=== PATIENT | male | born 1955 | race African-American/Black ===

== ENCOUNTER 2017-03-27 12:38 | Emergency (ER) | payer OTHER ==
[~2017-03-27 12:38] MED LIST: CREON24 PO; DILA4TAB2 PO; NOVO7030P2 SQ; PROT40TA PO
[2017-03-27 12:45] VITALS: BP 187/97; PULSE 84; RESP 20; TEMP 98.4; O2SAT 100
[2017-03-27] MEDS ORDERED: SODIUM CHLORIDE 0.9% FLUSH 10 ML FLUSH IV FLUSH PRN (13:00)
[2017-03-27] MEDS ORDERED: ONDANSETRON HCL 4 MG/2 ML VIAL IVP ONE (13:00)
[2017-03-27] MEDS ORDERED: MORPHINE SULFATE 8 MG/ML INJ IV PUSH ONE (13:00)
--- NOTE | 2017-03-27 13:01 | PD ---
HPI Chief Complaint: abdominal pain Time Seen by Provider: 12:45 Travel History International Travel<30 days: No Contact w/Intl Traveler<30days: No History of Present Illness HPI 62yo M with PMH of pancreatitis, DM presents to the ED with c/o epigastric abdominal pain for 1 day. Pain is burning, nonradiating and constant. Associated with nausea and vomiting. Pt also states he is sob because he is in a lot of pain. Denies any fever, chest pain, urinary complaints, diarrhea, focal weakness or numbness. Pt has had similar pain before and was admitted for intractable abdominal pain in 04/2016. PFSH Past Medical History Arthritis: No Asthma: Yes (as child) Autoimmune Disease: No Blood Disorders: No Anxiety: No Depression: Yes Heart Rhythm Problems: No Cancer: Yes (PANCREATIC PER PT- [place] UNKNOWN) Cardiovascular Problems: Yes (HTN) High Cholesterol: No Chemotherapy: No Chest Pain: No Congestive Heart Failure: No COPD: No Cerebrovascular Accident: No Diabetes: Yes Diminished Hearing: No Endocrine: Yes Gastrointestinal Disorders: Yes (HEPATITIS C) GERD: Yes Glaucoma: No Genitourinary: No Headaches: Yes Hepatitis: Yes (HEP C) Hiatal Hernia: Yes Hypertension: Yes Immune Disorder: No Implanted Vascular Access Dvce: No Kidney Stones: No Musculoskeletal: Yes Neurologic: Yes Psychiatric: No Reproductive: No Respiratory: Yes (ASTHMA) Immunizations Current: No Migraines: No Myocardial Infarction: No Pancreatitis: Yes Radiation Therapy: No Renal Failure: No Seizures: No Sickle Cell Disease: No Sleep Apnea: No Thyroid Disease: No Ulcer: No PNEUMOCCOCAL Vaccine (Year): 2 Past Surgical History Abdominal Surgery: Yes (WHIPPLE) AICD: No Appendectomy: No Arteriovenous Shunt: No Cardiac Surgery: No Cholecystectomy: Yes Ear Surgery: No Endocrine Surgery: No Eye Surgery: No Genitourinary Surgery: No Gynecologic Surgery: No Insulin Pump: No Joint Replacement: No Neurologic Surgery: Yes (HEADACHES) Oral Surgery: Yes ([place]LS) Pacemaker: No Thoracic Surgery: No Other Surgery: Yes Social History Alcohol Use: Yes (OCC) Tobacco Use: No (QUIT 20 YRS 1PPD) Substance Use: Yes (COCAINE USE 2 weeks ago per patient report) Allergies-Medications (Allergen,Severity, Reaction): Coded Allergies: lisinopril (Unverified Adverse Reaction, Severe, Cough, 03/27/17) *MDRO Multi-Drug Resistant Organism (Verified Adverse Reaction, Unknown, 04/12/15) MRSA leg wound 02/2015. Reported Meds & Prescriptions Reported Meds & Active Scripts Active Dilaudid (Hydromorphone HCl) 4 Mg Tab 4 Mg PO Q6H PRN Creon (Amylase/Lipase/Protease) 24,000-76,000-120,000 Units Cap 1 Cap PO TID Reported [Htn Med] Gabapentin 300 Mg Cap 300 Mg PO BID Novolin 70-30 Inj (Insulin Human Isoph/Insulin Regular) 1,000 Unit/10 Ml Vial 1 Units SQ BIDAC Protonix (Pantoprazole Sodium) 40 Mg Tab 40 Mg PO DAILY Review of Systems Except as stated in HPI: all other systems reviewed are Neg Physical Exam Narrative GENERAL: 62yo M in moderate distress. SKIN: Focused skin assessment warm/dry. HEAD: Atraumatic. Normocephalic. EYES: Pupils equal and round. No scleral icterus. No injection or drainage. CARDIOVASCULAR: Regular rate and rhythm. No murmur appreciated. RESPIRATORY: No accessory muscle use. Clear to auscultation. Breath sounds equal bilaterally. GASTROINTESTINAL: Abdomen soft, +TTP epigastric region. No rebound tenderness or guarding. MUSCULOSKELETAL: No obvious deformities. No clubbing. No cyanosis. No edema. NEUROLOGICAL: Awake and alert. No obvious cranial nerve deficits. Motor grossly within normal limits. Normal speech. PSYCHIATRIC: Appropriate mood and affect; insight and judgment normal. Data Data Last Documented VS Vital Signs Date Time Temp Pulse Resp B/P (MAP) Pulse Ox O2 Delivery O2 Flow Rate FiO2 03/27/17 15:09 77 16 130/56 (80) 99 Room Air 03/27/17 12:45 98.4 Orders Orders Complete Blood Count With Diff (03/27/17 12:52) Comprehensive Metabolic Panel (03/27/17 12:52) Lipase (03/27/17 12:52) Prothrombin Time / Inr (Pt) (03/27/17 12:52) Act Partial Throm Time (Ptt) (03/27/17 12:52) Urinalysis - C+S If Indicated (03/27/17 12:52) Ct Abd/Pel W Iv Contrast(Rout) (03/27/17 12:52) Iv Access Insert/Monitor (03/27/17 12:52) Ecg Monitoring (03/27/17 12:52) Oximetry (03/27/17 12:52) Ondansetron Inj (Zofran Inj) (03/27/17 13:00) Sodium Chloride 0.9% Flush (Ns Flush) (03/27/17 13:00) Chest, Single Ap (03/27/17 12:52) Troponin I (03/27/17 12:52) Morphine Inj (Morphine Inj) (03/27/17 13:00) Electrocardiogram (03/27/17 12:40) Iohexol 350 Inj (Omnipaque 350 Inj) (03/27/17 16:40) Labs Laboratory Tests Test 03/27/17 12:57 03/27/17 15:56 03/27/17 16:59 White Blood Count 9.4 TH/MM3 Red Blood Count 3.90 MIL/MM3 Hemoglobin 11.0 GM/DL Hematocrit 33.8 % Mean Corpuscular Volume 86.6 FL Mean Corpuscular Hemoglobin 28.3 PG Mean Corpuscular Hemoglobin Concent 32.7 % Red Cell Distribution Width 12.7 % Platelet Count 304 TH/MM3 Mean Platelet Volume 8.1 FL Neutrophils (%) (Auto) 76.7 % Lymphocytes (%) (Auto) 14.6 % Monocytes (%) (Auto) 3.6 % Eosinophils (%) (Auto) 1.3 % Basophils (%) (Auto) 3.8 % Neutrophils # (Auto) 7.2 TH/MM3 Lymphocytes # (Auto) 1.4 TH/MM3 Monocytes # (Auto) 0.3 TH/MM3 Eosinophils # (Auto) 0.1 TH/MM3 Basophils # (Auto) 0.4 TH/MM3 CBC Comment DIFF FINAL Differential Comment Prothrombin Time 10.8 SEC Prothromb Time International Ratio 1.0 RATIO Activated Partial Thromboplast Time 22.7 SEC Blood Urea Nitrogen 13 MG/DL Creatinine 0.93 MG/DL Random Glucose 116 MG/DL Total Protein 7.1 GM/DL Albumin 2.8 GM/DL Calcium Level 7.8 MG/DL Alkaline Phosphatase 67 U/L Aspartate Amino Transf (AST/SGOT) 15 U/L Alanine Aminotransferase (ALT/SGPT) 21 U/L Total Bilirubin 0.4 MG/DL Sodium Level 138 MEQ/L Potassium Level 3.6 MEQ/L Chloride Level 102 MEQ/L Carbon Dioxide Level 27.3 MEQ/L Anion Gap 9 MEQ/L Estimat Glomerular Filtration Rate 100 ML/MIN Troponin I LESS THAN 0.02 NG/ML Lipase 88 U/L Urine Color YELLOW Urine Turbidity CLEAR Urine pH 7.5 Urine Specific [place] 1.021 Urine Protein 30 mg/dL Urine Glucose (UA) 500 mg/dL Urine Ketones NEG mg/dL Urine Occult Blood NEG Urine Nitrite NEG Urine Bilirubin NEG Urine Leukocyte Esterase NEG Urine WBC 0-2 /hpf Urine Squamous Epithelial Cells 0-5 /hpf Microscopic Urinalysis Comment CULT NOT INDICATED MDM Medical Decision Making Medical Screen Exam Complete: Yes Emergency Medical Condition: Yes Interpretation(s) EKG: NSR 91bpm. Normal axis. Q waves in inferior leads as well as V4-6. Also 1mm ST segment elevation in V2. Unchanged from prior. Differential Diagnosis Pancreatitis vs. gastritis vs. gastric ulcer vs. colitis vs. UTI Narrative Course 62yo M with epigastric abdominal pain for 1 day. Labs reviewed, no leukocytosis. H/H low at 11/33.8. CMP unremarkable. Troponin negative. Lipase normal. UA negative for leukocyte. CT a/p showed minimal induration laterally abdominal wall right side, nonspecific. Pt has no pain there. No other abnormalities identified. CXR showed mild interstitial opacities in lower zones bilaterally. Although nonspecific this could represent interstitial pulmonary edema. Pt was given morphine, zofran and reevaluated at bedside. Denies any sob, nausea or abdominal pain. Pt is saturating at 99% on RA and I believe that he felt sob earlier because he was in pain. He is currently resting comfortably in bed. 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 No chest pain. Tolerating PO. Return precautions given. Diagnosis Primary Impression: Abdominal pain Qualified Codes: R10.13 - Epigastric pain Patient Instructions: General Instructions Departure Forms: Tests/Procedures Additional Instructions: Please follow up with your primary care physician in 1-2 days. Return to the ED if symptoms worsen. Med/Other Pt SpecificInfo: Prescription(s) given Scripts Hydrocodone-Acetaminophen (Lortab) 5-325 Mg Tab 1 TAB PO Q6H Y for PAIN, #7 TAB 0 Refills Prov: Salima Nathan 03/27/17 Disposition: 01 DISCHARGE HOME Condition: Stable Karon Nathancm RESENDIZ Mar 27, 2017 13:01
[2017-03-27 13:21] LABS: AUTOMATED NEUTROPHIL # 7.2 TH/MM3 (1.8-7.7); BASOPHIL # 0.4 TH/MM3 (0-0.2); BASOPHIL % 3.8 % (0.0-2.0); EOSINOPHIL # 0.1 TH/MM3 (0-0.4); EOSINOPHIL % 1.3 % (0.0-4.0); HEMATOCRIT 33.8 % (39.0-51.0); HEMO FLAGS DIFF FINAL; LYMPH % 14.6 % (9.0-44.0); LYMPHOCYTE # 1.4 TH/MM3 (1.0-4.8); MEAN CELL VOLUME 86.6 FL (80.0-100.0); MEAN CORPUSCULAR HEMOGLOBIN 28.3 PG (27.0-34.0); MEAN CORPUSCULAR HGB CONC 32.7 % (32.0-36.0); MONO % 3.6 % (0.0-8.0); NEUT % 76.7 % (16.0-70.0); PLATELET COUNT 304 TH/MM3 (150-450); RED CELL DISTRIBUTION WIDTH 12.7 % (11.6-17.2); WHITE BLOOD COUNT 9.4 TH/MM3 (4.0-11.0)
[2017-03-27 13:24] VITALS: O2SAT 100
[2017-03-27] MEDS ORDERED: GABA300C5 PO (13:26)
[2017-03-27] MEDS ORDERED: HTN MED (13:26)
[2017-03-27 13:34] LABS: APTT (PATIENT) 22.7 SEC (24.3-30.1); PROTHROMBIN TIME - PATIENT 10.8 SEC (9.8-11.6)
--- NOTE | 2017-03-27 14:05 | RADRPT ---
EXAM DATE/TIME: 03/27/2017 12:58 [facility] COMPARISON: CHEST SINGLE AP, April 27, 2016, 8:33. INDICATIONS : Short of breath MEDICAL HISTORY : Hepatitis C. Pancreatitis. Hernia, hiatal. Hypertension, Diabetes. SURGICAL HISTORY : Cholecystectomy. Whipple ENCOUNTER: Initial ACUITY: 1 day PAIN SCORE: 6/10 LOCATION: Bilateral chest FINDINGS: Portable AP view of the chest demonstrates a normal-sized cardiac silhouette. There are mild intersti tial opacities in the lower lung zones bilaterally. No pleural effusion or pneumothorax is identified . Bones and soft tissues demonstrate no acute finding. CONCLUSION: Mild interstitial opacities in the lower lung zones bilaterally. Although nonspecific this could repr esent interstitial pulmonary edema in the appropriate clinical setting. Major Steele MD on March 27, 2017 at 13:13 Board Certified Radiologist. This report was verified electronically.
[2017-03-27 15:09] VITALS: BP 130/56; PULSE 77; RESP 16; O2SAT 99
[2017-03-27 16:15] LABS: CHLORIDE 102 MEQ/L (98-107); POTASSIUM 3.6 MEQ/L (3.5-5.1); SODIUM (NA) 138 MEQ/L (136-145)
[2017-03-27 16:19] LABS: ANION GAP 9 MEQ/L (5-15); BICARBONATE 27.3 MEQ/L (21.0-32.0); BLOOD UREA NITROGEN 13 MG/DL (7-18)
[2017-03-27 16:22] LABS: ALT (GPT) 21 U/L (12-78); AST (GOT) 15 U/L (15-37); GLOMERULAR FILTRATION RATE 100 ML/MIN (>89)
[2017-03-27 16:23] LABS: TOTAL BILIRUBIN ADULT 0.4 MG/DL (0.2-1.0)
[2017-03-27 16:25] LABS: ALKALINE PHOSPHATASE 67 U/L (45-117)
[2017-03-27] MEDS ORDERED: IOHEXOL 350 MG/ML 10 ML VIAL (for RAD DIAG) IVCONTRAST ONE (16:40)
--- NOTE | 2017-03-27 17:04 | RADRPT ---
EXAM DATE/TIME: 03/27/2017 16:36 [facility] COMPARISON: CT ABDOMEN & PELVIS W CONTRAST, April 27, 2016, 8:09. INDICATIONS : Epigastric pain, nausea and vomiting. IV CONTRAST: 80 cc Omnipaque 350 (iohexol) IV ORAL CONTRAST: No oral contrast ingested. RADIATION DOSE: 11.69 CTDIvol (mGy) MEDICAL HISTORY : Pancreatitis. Hepatitis C. Gastroesophageal reflux disease.Diabetes. Asthma. Hiatal hernia. SURGICAL HISTORY : Cholecystectomy. Whipple. ENCOUNTER: Initial ACUITY: 1 day PAIN SCALE: 7/10 LOCATION: Epigastric. TECHNIQUE: Volumetric scanning of the abdomen and pelvis was performed. Using automated exposure control and ad justment of the mA and/or kV according to patient size, radiation dose was kept as low as reasonably achievable to obtain optimal diagnostic quality images. DICOM format image data is available electro nically for review and comparison. FINDINGS: There is mild interstitial edema present with mild cardiomegaly The liver is free of focal defects The spleen, pancreas and adrenals are unremarkable Radiographic contrast is scattered in the colon. There are no inflammatory changes in the upper abdo men. There is no free air or free fluid There is symmetrical renal function Minimal induration is present anterior abdominal wall, right midabdomen associated with the rectus sh eath. An not sure the etiology of this. This at this time the minimal finding. The pelvic contents are unremarkable. There no inflammatory changes. No diverticuli. There is no f ree air. Review of bone windows reveals only degenerative changes. CONCLUSION: Minimal induration laterally abdominal wall right side, nonspecific. Correlation is suggested. No other abnormalities are identified as the source of pain. End Godfrey Hernandez MD FACR on March 27, 2017 at 16:57 Board Certified Radiologist. This report was verified electronically.
[2017-03-27 17:37] LABS: BLOOD, URINE NEG (NEG); GLUCOSE,URINE 500 mg/dL (NEG); KETONE, URINE NEG (NEG); NITRITE,URINE NEG (NEG); PH, URINE 7.5 (5.0-8.5)
[2017-03-27 17:48] LABS: URINE COLOR YELLOW (YELLW/STRAW)
[2017-03-27 17:50] LABS: COMMENT (UR) CULT NOT INDICATED; CULTURE IF INDICATED CULT NOT INDICATED; SQUAMOUS EPITHELIAL CELL URINE 0-5 /hpf (0-5); WBC, URINE 0-2 /hpf (0-5)
[2017-03-27] MEDS ORDERED: HYDR-3533 PO (18:07)
--- NOTE | 2017-03-28 12:29 | EKG ---
Date Performed: 03/27/2017 Time Performed: 12:40:13 PTAGE: 62 years EKG: Normal Sinus rhythm Left atrial abnormality Nondiagnostic T-waves in inferior leads BORDERLINE ECG PREVIOUS TRACING : 04/27/2016 06.52 Compared to prior tracing no significant change DOCTOR: Anatoliy Oviedo Interpretating Date/Time 03/28/2017 12:28:15
== END 2017-03-27 18:19 | disposition home or self-care (01) ==
LOC: PHED 12:38
DX: R10.13 Epigastric pain (principal); B19.20 Unspecified viral hepatitis C without hepatic coma; E11.9 Type 2 diabetes mellitus without complications; Z79.4 Long term (current) use of insulin
CPT/HCPCS: 71010; 74177; 80053; 81001; 83690; 84484; 85025; 85610; 85730; 93005; 96374; 96375; 99285; J2270; J2405; Q9967